=== PATIENT | female | born 1995 | race Caucasian/White ===

== ENCOUNTER 2017-11-18 09:12 | Emergency (ER) | payer OTHER ==
[2017-11-18 10:04] LABS: URINE HCG POC HCG POSITIVE (Negative)
[2017-11-18 10:28] LABS: BILIRUBIN,URINE NEGATIVE (NEG); CLARITY,URINE CLEAR; COLOR,URINE YELLOW; GLUCOSE,URINE NEGATIVE (NEG); NITRITE,URINE NEGATIVE (NEG); PROTEIN,URINE NEGATIVE (NEG-TRACE); UROBILINOGEN,URINE 0.2 mg/dL (0.2 mg/dL)
[2017-11-18 10:32] LABS: ADD MAN DIFF? NO
[2017-11-18 10:40] LABS: BASO # 0.1 x10^3/uL (0.0-0.2); BASO % 1 % (0-3); EOS # 0.1 x10^3/uL (0.0-0.7); EOS % 1 % (0-3); HEMATOCRIT 41.4 % (36.0-47.0); HEMOGLOBIN 14.5 g/dL (12.0-15.5); LYMPH # 1.5 x10^3/uL (1.0-4.8); LYMPH % 20 % (24-48); MEAN CORPUSCULAR HEMOGLOBIN 34 pg (25-35); MEAN CORPUSCULAR HGB CONC 35 g/dL (31-37); MEAN CORPUSCULAR VOLUME 96 fL (79-100); MONO # 0.7 x10^3/uL (0.0-1.1); MONO % 9 % (0-9); NEUT # 5.1 x10^3uL (1.8-7.7); NEUT % 69 % (31-73); PLATELET COUNT 177 x10^3/uL (140-400); RED BLOOD COUNT 4.32 x10^6/uL (3.50-5.40); RED CELL DISTRIBUTION WIDTH 12.5 % (11.5-14.5); WHITE BLOOD COUNT 7.3 x10^3/uL (4.0-11.0)
[2017-11-18 10:43] LABS: ANION GAP 5 (6-14); BLOOD UREA NITROGEN 8 mg/dL (7-20); BUN/CREATININE RATIO 13 (6-20); CALCIUM 8.9 mg/dL (8.5-10.1); CARBON DIOXIDE 28 mmol/L (21-32); CHLORIDE 103 mmol/L (98-107); CREATININE 0.6 mg/dL (0.6-1.0); GFR 127.5; GLUCOSE 87 mg/dL (70-99); SODIUM 136 mmol/L (136-145)
[2017-11-18 10:46] LABS: BACTERIA,URINE 0 /HPF (0-FEW); RBC,URINE 0 /HPF (0-2); SQUAMOUS EPITHELIAL CELL,UR FEW /LPF
[2017-11-18 10:50] LABS: ALBUMIN 3.8 g/dL (3.4-5.0); ALK PHOS 59 U/L (46-116); ALT (SGPT) 16 U/L (14-59); AST (SGOT) 12 U/L (15-37); TOTAL BILIRUBIN 0.4 mg/dL (0.2-1.0); TOTAL PROTEIN 7.6 g/dL (6.4-8.2)
== END 2017-11-18 11:45 | disposition home or self-care (01) ==
LOC: ER 09:12
DX: O20.0 Threatened abortion (principal); O26.891 Other specified pregnancy related conditions, first trimester; M54.2 Cervicalgia; M25.562 Pain in left knee; O99.321 Drug use complicating pregnancy, first trimester; F12.10 Cannabis abuse, uncomplicated; Z88.2 Allergy status to sulfonamides; Z88.1 Allergy status to other antibiotic agents; Z91.018 Allergy to other foods; Z3A.10 10 weeks gestation of pregnancy; V43.52XA Car driver injured in collision with other type car in traffic accident, initial encounter; Y93.I9 Activity, other involving external motion; Y92.410 Unspecified street and highway as the place of occurrence of the external cause; Y99.8 Other external cause status
CPT/HCPCS: 36415; 76801; 80053; 81001; 81025; 84702; 85025; 86850; 86900; 86901; 87491; 87591; 99285-25

== ENCOUNTER 2018-04-07 10:08 | Emergency (ER) | payer OTHER, MEDICAID | END 2018-04-07 10:47 | disposition home or self-care (01) | LOC: ER 10:47 | DX: O26.893 Other specified pregnancy related conditions, third trimester (principal); H66.91 Otitis media, unspecified, right ear; Z3A.31 31 weeks gestation of pregnancy; Z88.2 Allergy status to sulfonamides; Z88.8 Allergy status to other drugs, medicaments and biological substances; Z91.018 Allergy to other foods | CPT/HCPCS: 99283 ==

== ENCOUNTER 2018-10-30 06:58 | Emergency (ER) | payer SELFPAY ==
[~2018-10-30] VITALS: Ht 170.2 cm; Wt 59.0 kg
[~2018-10-30 06:58] MED LIST: AMOX500T PO; ERYT1OIN6 OS; MUPI22OI2 TP; SULF1TAB24 PO; TRAM1TAB4 PO
[2018-10-30 07:08] VITALS: BP 120/58
[2018-10-30] MEDS ORDERED: AMOX875T PO (07:37)
[2018-10-30] MEDS ORDERED: DEXAMETHASONE SOD PHOS 20 MG/5 ML VIAL. PO ONE (07:45)
--- NOTE | 2018-10-30 07:46 | PHYS DOC ---
Past Medical History Past Medical History: No Pertinent History Past Surgical History: No Surgical History Alcohol Use: None Drug Use: Marijuana Adult General Chief Complaint Chief Complaint: SORE THROAT HPI HPI Patient is a 22 year old female presenting with sore throat 2 days no fever minimal really hardly any cough at all really bad sore throat feels very swollen Review of Systems Review of Systems Constitutional: Denies fever or chills [] Cardiovascular: No additional information not addressed in HPI [] Neurologic: Denies headache, focal weakness or sensory changes [] Endocrine: Denies polyuria or polydipsia [] All other systems were reviewed and found to be within normal limits, except as documented in this note. Current Medications Current Medications Current Medications Medications (Trade) Dose Ordered Sig/Mariana Start Time Stop Time Status Last Admin Dose Admin Dexamethasone Sodium Phosphate (Decadron) 10 mg 1X ONCE 10/30/18 07:45 10/30/18 07:46 Allergies Allergies Allergies Coded Allergies Type Severity Reaction Last Updated Verified banana Allergy Unknown Anaphylaxis 11/18/17 Yes cocoa Allergy Unknown Hives 11/18/17 Yes sulfamethoxazole Allergy Unknown Hives 11/18/17 Yes trimethoprim Allergy Unknown Hives 11/18/17 Yes Physical Exam Physical Exam Constitutional: Well developed, well nourished, no acute distress, non-toxic appearance. [] HENT: Bilateral tonsillar erythema and swelling uvula is in the midline left tonsil slightly more prominent than right. 1.5 cm tender anterior cervical lymphadenopathy noted bilaterally Eyes: PERRLA, EOMI, conjunctiva normal, no discharge. [] Pulmonary: Normal respiratory effort no increased work of breathing no obvious chest wall trauma Abdomen: Bowel sounds normal, soft, no tenderness, no masses, no pulsatile masses. [] Skin: Warm, dry, no erythema, no rash. [] Back: No tenderness, no CVA tenderness. [] Extremities: No tenderness, no cyanosis, no clubbing, ROM intact, no edema. [] Neurologic: Alert and oriented X 3, normal motor function, normal sensory function, no focal deficits noted. [] Psychologic: Affect normal, judgement normal, mood normal. [] Current Patient Data Vital Signs Vital Signs Date Time Temp Pulse Resp B/P (MAP) Pulse Ox O2 Delivery O2 Flow Rate FiO2 10/30/18 07:08 99.5 100 20 120/58 (78) 98 Room Air 99.5 Lab Values Laboratory Tests Test 10/30/18 07:20 Group A Streptococcus Rapid Negative (NEGATIVE) EKG EKG [] Radiology/Procedures Radiology/Procedures [] Course & Med Decision Making Course & Med Decision Making Pertinent Labs and Imaging studies reviewed. (See chart for details) []Rapid strep did come back negative however patient has signs and symptoms strongly suggestive of strep pharyngitis given an elevated centOR criteria we opted TO given antibiotics RETURN prec discussed reviewed in detail. Dragon Disclaimer Dragon Disclaimer This electronic medical record was generated, in whole or in part, using a voice recognition dictation system. Departure Departure Impression: Primary Impression: Pharyngitis Disposition: HOME, SELF-CARE Condition: STABLE Patient Instructions: Sore Throat, Knkh-cu-Kiut Scripts Amoxicillin (AMOXICILLIN) 875 Mg Tablet 1 TAB PO BID, #14 TAB Prov: CARMELA ALARCON MD 10/30/18 CARMELA ALARCON MD Oct 30, 2018 07:46
== END 2018-10-30 07:53 | disposition home or self-care (01) ==
LOC: ER 06:58
DX: J02.9 Acute pharyngitis, unspecified (principal); Z88.1 Allergy status to other antibiotic agents; Z88.2 Allergy status to sulfonamides; Z91.018 Allergy to other foods; R59.0 Localized enlarged lymph nodes
CPT/HCPCS: 87070; 87880; 99283; J1100

== ENCOUNTER 2020-04-14 17:29 | Emergency (ER) | payer OTHER ==
[~2020-04-14] VITALS: Ht 165.1 cm; Wt 55.0 kg
[~2020-04-14 17:29] MED LIST changes: +AMOX875T PO
[2020-04-14 17:30] VITALS: BP 115/62
[2020-04-14] MEDS ORDERED: METH-38 PO (18:53)
[2020-04-14] MEDS ORDERED: NAPR-514 PO (18:53)
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
[2020-04-14] MEDS ORDERED: ORPHENADRINE CITRATE 60 MG/2 ML VIAL. IM ONE (19:00)
[2020-04-14] MEDS ORDERED: KETOROLAC 60 MG/2 ML VIAL. IM ONE (19:00)
== END 2020-04-14 19:08 | disposition home or self-care (01) ==
LOC: ER 17:29
DX: S29.012A Strain of muscle and tendon of back wall of thorax, initial encounter (principal); F17.200 Nicotine dependence, unspecified, uncomplicated; F12.90 Cannabis use, unspecified, uncomplicated; Z88.2 Allergy status to sulfonamides; Z88.8 Allergy status to other drugs, medicaments and biological substances; Z91.018 Allergy to other foods; V49.9XXA Car occupant (driver) (passenger) injured in unspecified traffic accident, initial encounter; Y93.89 Activity, other specified; Y92.413 State road as the place of occurrence of the external cause; Y99.8 Other external cause status
CPT/HCPCS: 99283

== ENCOUNTER 2020-04-19 10:00 | Emergency (ER) | payer OTHER, BC ==
[~2020-04-19] VITALS: Ht 165.1 cm; Wt 55.9 kg
[~2020-04-19 10:00] MED LIST changes: +METH-38 PO; +NAPR-514 PO
[2020-04-19 10:11] VITALS: BP 115/56
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
== END 2020-04-19 12:52 | disposition home or self-care (01) ==
LOC: ER 10:00
DX: R51 Headache (principal); M25.512 Pain in left shoulder; G89.11 Acute pain due to trauma; M54.2 Cervicalgia; M54.5 Low back pain; M54.6 Pain in thoracic spine; F17.200 Nicotine dependence, unspecified, uncomplicated; Z88.1 Allergy status to other antibiotic agents; Z88.2 Allergy status to sulfonamides; Z91.018 Allergy to other foods; V49.49XA Driver injured in collision with other motor vehicles in traffic accident, initial encounter; Y92.488 Other paved roadways as the place of occurrence of the external cause; Y93.89 Activity, other specified; Y99.8 Other external cause status
CPT/HCPCS: 70450; 72125; 72128; 72131; 73030; 81025; 99285-25